=== PATIENT | male | born 1955 | race Caucasian/White ===

== ENCOUNTER 2019-01-30 15:06 | Inpatient (IN) ==
--- NOTE | 2019-01-30 17:37 | Anesthesia Evaluation PreOp ---
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 History: Other (Dementia, Depression/Anxiety) Other Medical History: Hepatic (Hep C), GERD (PUD), Other (Vertigo, spinal stenosis, BPH) Anesthesia History: Past Anesthesia (none) Alcohol Use: none Drug use: none Medications and Allergies Acetaminophen [Acetaminophen ER] 650 mg PO Q8H 01/30/19 [History] Atorvastatin Calcium [Lipitor] 20 mg PO DAILY 01/30/19 [History] Cromolyn Sodium 10 ml OP 01/30/19 [History] DiphenhydraMINE [Benadryl] 50 mg IV Q8HR 01/30/19 [History] Donepezil HCl [Aricept] 5 mg PO DAILY 01/30/19 [History] Duloxetine HCl [Cymbalta] 120 mg PO DAILY 01/30/19 [History] Finasteride [Proscar] 5 mg PO DAILY 01/30/19 [History] LORazepam [Lorazepam] 1 tab PO BID 01/30/19 [History] Levothyroxine 1 tab PO DAILY 01/30/19 [History] [place] Carbonate 300 mg PO BID 01/30/19 [History] Loperamide HCl [Anti-Diarrheal] 2 mg PO BID 01/30/19 [History] Nitrofurantoin Macrocrystal [Nitrofurantoin] 100 mg PO BID 01/30/19 [History] Tamsulosin HCl [Flomax] 0.4 mg PO DAILY 01/30/19 [History] chlorproMAZINE [Thorazine] 25 mg PO DAILY 01/30/19 [History] risperiDONE [Risperidone] 1 mg PO Q4H 01/30/19 [History] Allergy/AdvReac Type Severity Reaction Status Date / Time bupropion Allergy See Verified 01/30/19 12:52 Comments haloperidol [From Haldol] Allergy See Verified 01/30/19 12:52 Comments methadone Allergy See Verified 01/30/19 12:52 Comments pravastatin Allergy See Verified 01/30/19 12:52 Comments rosuvastatin [From Crestor] Allergy See Verified 01/30/19 12:52 Comments simvastatin Allergy See Verified 01/30/19 12:52 Comments sulfamethoxazole Allergy See Verified 01/30/19 12:52 [From Bactrim] Comments tramadol Allergy See Verified 01/30/19 12:52 Comments trimethoprim [From Bactrim] Allergy See Verified 01/30/19 12:52 Comments - Meds/Allergy Pre-op Review Medications Reviewed: Yes Allergies Reviewed: Yes Beta Blockers on Current Med List: No Anesthesia Results - Labs Laboratory Tests 04/27/15 05/21/15 06:02 06:10 WBC 6.1 Hgb 14.7 Hct 44.8 Plt Count 177 Hemoglobin A1c 5.9 Anesthesia Exam Vital Signs/O2 Sat, Most Current Temp Pulse Resp BP Pulse Ox 97.7 F 91 17 145/91 98 01/30/19 18:36 01/30/19 18:36 01/30/19 18:36 01/30/19 18:36 01/30/19 18:36 - HEENT Pupil (Motor): Pupils equal, EOMI Mallampati: III Teeth: Normal Oral Opening: Greater than 3 - PHOTOVOLTAIC FABRICATION TECHNICIAN LOC: Confused, Disoriented PHOTOVOLTAIC FABRICATION TECHNICIAN Motor: Normal RUE, Normal LUE, Normal RLE, Normal LLE, Normal Face PHOTOVOLTAIC FABRICATION TECHNICIAN Sensory: Normal: RUE, LUE, RLE, LLE, Face - Cardiac Rhythm: Regular Murmur: None JVD: No Carotid Bruit: No - Pulmonary Breath Sounds: bilateral Clear Respiratory Effort: Symmetrical - Additional Findings 19:45 Unsuccessfully attempted contacting Roshni Del Castillo, Sister and Guardian. . Anesthesia Assess/Plan ASA Score: 3 Level of consciousness: Cooperative Anesthetic Plan: General, Regional Nerve Block Regional Nerve Block Plan: Supraclavicular Autologous Blood: Yes Monitoring Plan: Standard Monitors Recovery Plan: PACU
[2019-01-30] MEDS ORDERED: Naloxone 0.4 MG/ML INJ IVP PRN (18:46)
[2019-01-30] MEDS ORDERED: Ondansetron 4 MG/2 ML VIAL IVP PRN (18:46)
--- NOTE | 2019-01-30 19:24 | Internal Med History&Physical ---
Date of Encounter: 01/30/19 Time of Encounter: 19:23 Internal Medicine - H&P: HPI Chief complaint: L arm pain Admitted From: Hospital to Hospital Transfer Plans for Post Hospital Care: Transfer Group Home Facility History of present illness: Mr. Nichols is a 63 year old male Information obtained from medical records since patient has hx of dementia an is a poor historian - past medical hx of CAD dementia GERD hepatitis HTN thyroid disease bipolar depression. Presented to [facility] after experiencing fall at [facility]. Patient was recently transferred to the [facility]. Unsure of how patient fell, patient states " I fell out of wheel chair" He has hx of multiple falls - Humerus xray Comminuted fracture with dislocation left shoulder.He does have a hx of prior humerus fx unsure if this has been repaired in the past. He was transfered to this facility for surgical intervention. Currently patient is oriented to name only - he thinks he is at the [facility]- I attempted to contact patient sister - Roshni Del Castillo who is listed as emergency contact - no answer left message. Unsure if the fall is mechanical in nature or if he experienced some cardiovascular/neurological event. Will obtain CT of head without contrast as well as a cardiac workup. At this time thepatient is HIGH RISK for surgery dt lack of medical information and unknown nature of fall. He require a complete cardiac workup, I did discuss with Dr Siddiqui who is on for orthopedics and informed him that the patient NOT CLEARED for surgery at this time. Past Med Surg Social Fam HX - Past Medical History Medical history: coronary artery disease, dementia, diabetes, GERD, glaucoma, hepatitis, hyperlipidemia, hypertension, osteoporosis, thyroid disease, other Additional medical history: Hep C. CANDIDA. Anemia. Vertigo. Spinal stenosis. Pepic Ulcer. Malingerer. BPH Psychiatric history: bipolar, depression - Social History Smoking Status: Never smoker Smokeless Tobacco Status: No Alcohol use: none Drug use: none - Additional Family History Additional family history: unknown Internal Medicine - H&P: Meds Acetaminophen [Acetaminophen ER] 650 mg PO Q6H PRN 01/30/19 [History] Atorvastatin Calcium [Lipitor] 20 mg PO DAILY 01/30/19 [History] Cromolyn Sodium 10 ml OP BID 01/30/19 [History] DiphenhydraMINE [Benadryl] 50 mg IV Q8HR 01/30/19 [History] Donepezil HCl [Aricept] 5 mg PO DAILY 01/30/19 [History] Duloxetine HCl [Cymbalta] 120 mg PO DAILY 01/30/19 [History] Finasteride [Proscar] 5 mg PO DAILY 01/30/19 [History] LORazepam [Lorazepam] 1 tab PO BID 01/30/19 [History] Levothyroxine 1 tab PO DAILY 01/30/19 [History] [place] Carbonate 300 mg PO BID 01/30/19 [History] Loperamide HCl [Anti-Diarrheal] 2 mg PO BID 01/30/19 [History] Nitrofurantoin Macrocrystal [Nitrofurantoin] 100 mg PO BID 01/30/19 [History] Tamsulosin HCl [Flomax] 0.4 mg PO DAILY 01/30/19 [History] chlorproMAZINE [Thorazine] 25 mg PO DAILY 01/30/19 [History] risperiDONE [Risperidone] 1 mg PO Q4H 01/30/19 [History] Allergy/AdvReac Type Severity Reaction Status Date / Time bupropion Allergy See Verified 01/30/19 12:52 Comments haloperidol [From Haldol] Allergy See Verified 01/30/19 12:52 Comments methadone Allergy See Verified 01/30/19 12:52 Comments pravastatin Allergy See Verified 01/30/19 12:52 Comments rosuvastatin [From Crestor] Allergy See Verified 01/30/19 12:52 Comments simvastatin Allergy See Verified 01/30/19 12:52 Comments sulfamethoxazole Allergy See Verified 01/30/19 12:52 [From Bactrim] Comments tramadol Allergy See Verified 01/30/19 12:52 Comments trimethoprim [From Bactrim] Allergy See Verified 01/30/19 12:52 Comments ROS unobtainable: due to mental status All Systems PM: A 10-system review of systems was performed and is negative for pertinent findings except as documented above in the HPI. - Constitutional Vitals: Temp Pulse Resp BP Pulse Ox 97.7 F 91 17 145/91 98 01/30/19 18:36 01/30/19 18:36 01/30/19 18:36 01/30/19 18:36 01/30/19 18:36 General appearance: Present: A&O X 1 Exam: . - Head Head exam: Present: atraumatic, normocephalic - Eye Eye exam: Present: PERRL, conjuntiva pink, sclera anicteric Pupils: Present: PERRL - Neck Neck exam general surgery: Present: supple, trachea midline. Absent: lymphadenopathy - Respiratory Respiratory exam: Present: CTAB. Absent: accessory muscle use, rales, rhonchi, wheezes - Cardiovascular Cardiovascular exam: Present: RRR, +S1, +S2. Absent: diastolic murmur, gallop, rubs, systolic murmur - GI/Abdominal GI/Abdominal exam: Present: normal bowel sounds, soft, no peritoneal signs. A bsent: distended, tenderness - Extremities Exam Extremities exam: Present: normal capillary refill, warm, radial pulses palpable and symmetrical. Absent: calf tenderness, cyanotic, pedal edema - Expanded Upper Extremities Exam Shoulder exam: Present: tenderness, tenderness over AC joint - Neurological Exam Neurological exam: Present: CN II-XII intact, no focal deficits. Absent: pronater drift, facial droop, speech deficit - Skin Skin exam: Present: dry, intact Internal Med - H&P Results - Labs CBC & Chem 7: 01/30/19 19:21 - Assessment and Plan (1) Fracture, humerus Current Visit: No Status: Acute Assessment and plan: L humerus fx secondary to fall appears he has prior hx of past fx ortho consulted - currently patient is NOT cleared for surgery dt unsure of past medical hx- complete cardiac workup will need to be completed Qualifiers: Encounter type: initial encounter Humerus Location: shaft Fracture type: closed Fracture morphology: comminuted Fracture alignment: displaced Laterality: left Qualified Code(s): S42.352A - Displaced comminuted fracture of shaft of humerus, left arm, initial encounter for closed fracture (2) Dementia Current Visit: Yes Status: Acute Assessment and plan: cont home medication Qualifiers: Dementia type: unspecified type Dementia behavioral disturbance: without behavioral disturbance Qualified Code(s): F03.90 - Unspecified dementia without behavioral disturbance (3) CAD (coronary artery disease) Current Visit: Yes Status: Acute Assessment and plan: 1 per hx- CAD- unknown if he has any stents we will obtain cardiac echo troponin EKG and cardiology if warranted Qualifiers: Coronary Disease-Associated Artery/Lesion type: unspecified vessel or lesion type [place] vs. transplanted heart: [place] heart Associated angina: without angina Qualified Code(s): I25.10 - Atherosclerotic heart disease of [place] coronary artery without angina pectoris (4) HTN (hypertension) Current Visit: Yes Status: Acute Assessment and plan: cont home medications Qualifiers: Hypertension type: essential hypertension Qualified Code(s): I10 - Essential (primary) hypertension (5) Hypothyroid Current Visit: Yes Status: Acute Assessment and plan: check TSH Qualifiers: Hypothyroidism type: unspecified Qualified Code(s): E03.9 - Hypothyroidism, unspecified (6) Bipolar 1 disorder, depressed Current Visit: Yes Status: Acute Assessment and plan: cont home medications (7) Fall Current Visit: Yes Status: Acute Assessment and plan: Fall, unsure if witnessed , unsure if mechanical in nature vs cardiovascular/neurological, infectious will obtain CT of head cardiac echo cont cardiac monitoring lab s urine Qualifiers: Encounter type: initial encounter Qualified Code(s): W19.XXXA - Unspecified fall, initial encounter - Time Spent With Patient Total time spent is greater than 50% in coordination of care (as documented) at patient's floor/unit and/or counseling patient:
[2019-01-30 19:53] LABS: Basophils # 0.1 K/mcL (0.0-0.2); Basophils % 0.7 %; Eosinophils # 0.2 K/mcL (0.0-0.6); Eosinophils % 2.1 %; Hemoglobin 11.5 g/dL (12.9-16.9); Immature Granulocytes % 0.4 % (0-4); Lymphocytes # 1.7 K/mcL (0.6-4.6); Lymphocytes % 16.9 %; Mean Corpuscular HGB Conc 31.1 g/dL (31.6-35.5); Mean Corpuscular Hemoglobin 26.9 pg (28.0-33.3); Mean Corpuscular Volume 86.4 fL (83.0-100.0); Mean Platelet Volume 11.3 fL (9.4-12.4); Monocytes # 0.8 K/mcL (0.0-1.3); Monocytes % 7.7 %; Neutrophils # 7.1 K/mcL (1.6-8.9); Platelet Count 189 K/mcL (140-400); Red Blood Count 4.28 M/mcL (4.19-5.50); Red Cell Distribution Width 14.9 % (11.5-14.5); Segmented Neutrophils % 72.2 %; White Blood Count 9.9 K/mcL (4.3-11.1)
[2019-01-30 20:14] LABS: BUN/Creatinine Ratio 18 (6-26); Blood Urea Nitrogen 14 mg/dL (8-23); Calcium 10.6 mg/dL (8.6-10.3); Carbon Dioxide 27 mEq/L (23-29); Chloride 98 mEq/L (98-107); Glucose 151 mg/dL (70-105); Osmolality,Calculated 279 (280-300); Potassium 3.1 mEq/L (3.5-5.1); Sodium 133 mEq/L (136-145); Troponin I < 0.03 ng/mL (< 0.04); eGFR For African Americans > 60 (> 60); eGFR For Non-African Americans > 60 (> 60)
[2019-01-30] MEDS ORDERED: risperiDONE 1 MG TABLET PO SCH (20:15)
[2019-01-30 20:26] LABS: Thyroid Stimulating Hormone 0.573 mcIU/mL (0.340-5.600)
[2019-01-30] MEDS ORDERED: risperiDONE 1 MG TABLET PO PRN (22:22)
[2019-01-30] MEDS: Lithium Carbonate 300 MG CAPSULE PO SCH (22:25)
[2019-01-30] MEDS: *HR* LORazepam 1 MG TABLET PO SCH (22:25)
[2019-01-30] MEDS ORDERED: Potassium Chloride 20 MEQ, Lidocaine 1% 2 ML in D5% in Water 250 ML IVPB ONE (22:29)
[2019-01-31 00:26] LABS: Bilirubin,Urine Negative (Negative); Blood,Urine Negative (Negative); Clarity,Urine Clear (Clear); Color,Urine Yellow (Yellow); Glucose,Urine (UA) Normal (Normal); Ketones,Urine Negative (Negative); Leukocyte Esterase,Urine Moderate (Negative); Nitrite,Urine Negative (Negative); PH,Urine 6.5 pH Units (5.0-8.0); Protein,Urine Negative (Neg-Trace); Specific Gravity,Urine 1.007 (1.010-1.025); Urobilinogen,Urine Normal (Normal)
[2019-01-31 00:27] LABS: Bacteria,Urine None Seen per hpf (None-Few); Hyaline Casts,Urine None Seen per lpf (None-Few); RBC,Urine 0-3 per hpf (0-3); Squamous Epithelial Cell,Urine Moderate per lpf (None-Few); WBC,Urine 15-30 per hpf (0-3)
[2019-01-31 02:36] LABS: Basophils # 0.1 K/mcL (0.0-0.2); Basophils % 0.7 %; Eosinophils # 0.4 K/mcL (0.0-0.6); Eosinophils % 4.5 %; Hematocrit 34.8 % (37.5-50.1); Hemoglobin 10.9 g/dL (12.9-16.9); Immature Granulocytes % 0.4 % (0-4); Lymphocytes % 23.8 %; Mean Corpuscular HGB Conc 31.3 g/dL (31.6-35.5); Mean Corpuscular Volume 86.1 fL (83.0-100.0); Mean Platelet Volume 11.2 fL (9.4-12.4); Monocytes # 0.8 K/mcL (0.0-1.3); Monocytes % 9.5 %; Neutrophils # 5.2 K/mcL (1.6-8.9); Platelet Count 187 K/mcL (140-400); Red Blood Count 4.04 M/mcL (4.19-5.50); Red Cell Distribution Width 14.8 % (11.5-14.5); Segmented Neutrophils % 61.1 %; White Blood Count 8.5 K/mcL (4.3-11.1)
[2019-01-31 02:51] LABS: BUN/Creatinine Ratio 18 (6-26); Blood Urea Nitrogen 16 mg/dL (8-23); Calcium 10.4 mg/dL (8.6-10.3); Carbon Dioxide 28 mEq/L (23-29); Chloride 99 mEq/L (98-107); Glucose 129 mg/dL (70-105); Osmolality,Calculated 281 (280-300); Potassium 4.2 mEq/L (3.5-5.1); Sodium 134 mEq/L (136-145); eGFR For African Americans > 60 (> 60); eGFR For Non-African Americans > 60 (> 60)
[2019-01-31] MEDS: Lithium Carbonate 300 MG CAPSULE PO SCH ×2 (08:58→20:08)
[2019-01-31] MEDS: *HR* LORazepam 1 MG TABLET PO SCH ×2 (08:59→20:08)
[2019-01-31] MEDS ORDERED: chlorproMAZINE 25 MG TABLET PO SCH (09:00)
[2019-01-31] MEDS ORDERED: Finasteride 5 MG TABLET PO SCH (09:00)
--- NOTE | 2019-01-31 09:11 | Orthopedics Progress Note ---
Date of Encounter: 01/31/19 Time of Encounter: 09:10 Subjective Interval history: Patient seen this morning, awake and alert but not oriented. Patient has a comminuted displaced fracture dislocation of the left proximal humerus. Patient is awaiting surgical clearance, recommended surgery is left total shoulder replacement. We are trying to reach the POA for surgical consent. Objective Vital signs: Vital Signs Temp Pulse Resp BP Pulse Ox 01/31/19 07:18 97.9 F 82 16 128/87 95 01/31/19 03:37 98.4 F 88 17 116/76 96 01/30/19 23:51 97.8 F 92 17 127/80 96 01/30/19 18:36 97.7 F 91 17 145/91 98 Intake and Output 01/30/19 01/31/19 01/31/19 23:59 07:59 15:59 Output Total 60 / 60 1200 / 2200 1000 / 2200 Balance -60 / -60 -1200 / -2200 -1000 / -2200 Output: Catheter 60 / 60 1200 / 2200 1000 / 2200 Other: # Voids 1 # Urine Diapers 1 Weight 80.9 kg 81 kg Blood Glucose* 175 102 Patient Weight 01/31/19 23:59 Weight 81 kg - Labs CBC & BMP: 01/31/19 01:10 01/31/19 01:10 Labs: Abnormal lab results RBC 4.04 M/mcL (4.19-5.50) L 01/31/19 01:10 Hgb 10.9 g/dL (12.9-16.9) L 01/31/19 01:10 Hct 34.8 % (37.5-50.1) L 01/31/19 01:10 MCH 27.0 pg (28.0-33.3) L 01/31/19 01:10 MCHC 31.3 g/dL (31.6-35.5) L 01/31/19 01:10 RDW 14.8 % (11.5-14.5) H 01/31/19 01:10 Sodium 134 mEq/L (136-145) L 01/31/19 01:10 Potassium 3.1 mEq/L (3.5-5.1) L 01/30/19 19:21 Glucose 129 mg/dL (70-105) H 01/31/19 01:10 279 (280-300) L 01/30/19 19:21 Calcium 10.4 mg/dL (8.6-10.3) H 01/31/19 01:10 Ur Specific [place] 1.007 (1.010-1.025) L 01/30/19 23:50 Ur Leukocyte Esterase Moderate (Negative) H 01/30/19 23:50 15-30 per hpf (0-3) H 01/30/19 23:50 Ur Squamous Epith Cells Moderate per lpf (None-Few) H 01/30/19 23:50 Ur Culture Indicated? YES (NO) A 01/30/19 23:50 [place] 0.4 mEq/L (0.6-1.2) L 01/30/19 19:21
--- NOTE | 2019-01-31 10:21 | Event Note ---
Date of Encounter: 01/31/19 Time of Encounter: 10:16 S/w Patient's [id number] who is not guardian. Informed patient that I am unable to give her any of patient's information at this time, however, she provides voluntary information stating that patient was in appx 2 months ago with a left upper extremity fracture that was at that time deemed inoperable per [id number] Britni Nichols at who is per Britni patient's brother's , Aaron Nichols. She states he was then transferred to [facility] in [place] and then to a long-term from the [facility]. Left requesting return call to which was the number Britni proivded as Roshni Del Castillo, patient's sister Information in packet from [facility] in [place] reviewed. Now attempting to contact to get copy of xray of shoulder from 2 months ago to attempt to confirm acuteness of fracture. Dr. Siddiqui updated with above information.
[2019-01-31] MEDS ORDERED: *HR* FentaNYL (PF) 100 MCG/2 ML VIAL ONE ×2 (11:19→14:18)
[2019-01-31] MEDS ORDERED: *HR* Propofol 200 MG/20 ML VIAL IVP ONE ×2 (11:19→14:18)
[2019-01-31] MEDS ORDERED: *HR* Midazolam HCl 2 MG/2 ML VIAL ONE (11:19)
[2019-01-31] MEDS ORDERED: Ondansetron 4 MG/2 ML VIAL ONE ×2 (11:23→14:26)
[2019-01-31] MEDS ORDERED: Lidocaine -MPF 2% 2 ML VIAL ONE ×2 (11:23→14:26)
[2019-01-31] MEDS ORDERED: Dexamethasone 4 MG/ML VIAL ONE ×2 (11:23→14:26)
--- NOTE | 2019-01-31 12:41 | Orthopedics Progress Note ---
Date of Encounter: 01/31/19 Time of Encounter: 12:39 Subjective Interval history: The entire date until this point has been trying to figure out patient status before admission, as well as tracking down his power of securities attorney. Fortunately we were able to gain information from recent admission at [facility]. Patient presents today with a fracture of the left humerus. We will to obtain the old films and compare them to the new films since his most recent fall. Patient had a displaced fracture of the left proximal humerus with the alignment although rotation of the humeral head was in line and within the safe space of the upper extremity. Patient's new x-rays show significant difference with displacement of the humeral shaft medially and concern of placing the neurovascular structures medially at risk. Based on the new identified risk and change since his previous x-rays recommendation is still to proceed with surgical management left total shoulder replacement reverse bone socket. We have still been unable to reach his power of securities attorney, this is a fairly urgent surgery due to the risks of the neurovascular structures, delay may result in catastrophic injury. Based on these facts recommendations to proceed with a left total shoulder replacement reverse bone socket without delay, and proceeded without documentation of agreement with the power of securities attorney. Objective Vital signs: Vital Signs Temp Pulse Resp BP Pulse Ox 01/31/19 09:50 98.3 F 96 14 139/84 96 01/31/19 07:18 97.9 F 82 16 128/87 95 01/31/19 03:37 98.4 F 88 17 116/76 96 01/30/19 23:51 97.8 F 92 17 127/80 96 01/30/19 18:36 97.7 F 91 17 145/91 98 Intake and Output 01/30/19 01/31/19 01/31/19 23:59 07:59 15:59 Output Total 60 / 60 1200 / 3000 1800 / 3000 Balance -60 / -60 -1200 / -3000 -1800 / -3000 Output: Catheter 60 / 60 1200 / 3000 1800 / 3000 Other: # Voids 1 # Urine Diapers 1 Weight 80.9 kg 81 kg Blood Glucose* 175 86 Patient Weight 01/31/19 23:59 Weight 81 kg - Labs CBC & BMP: 01/31/19 01:10 01/31/19 01:10 Labs: Abnormal lab results RBC 4.04 M/mcL (4.19-5.50) L 01/31/19 01:10 Hgb 10.9 g/dL (12.9-16.9) L 01/31/19 01:10 Hct 34.8 % (37.5-50.1) L 01/31/19 01:10 MCH 27.0 pg (28.0-33.3) L 01/31/19 01:10 MCHC 31.3 g/dL (31.6-35.5) L 01/31/19 01:10 RDW 14.8 % (11.5-14.5) H 01/31/19 01:10 Sodium 134 mEq/L (136-145) L 01/31/19 01:10 Potassium 3.1 mEq/L (3.5-5.1) L 01/30/19 19:21 Glucose 129 mg/dL (70-105) H 01/31/19 01:10 279 (280-300) L 01/30/19 19:21 Calcium 10.4 mg/dL (8.6-10.3) H 01/31/19 01:10 Ur Specific [place] 1.007 (1.010-1.025) L 01/30/19 23:50 Ur Leukocyte Esterase Moderate (Negative) H 01/30/19 23:50 15-30 per hpf (0-3) H 01/30/19 23:50 Ur Squamous Epith Cells Moderate per lpf (None-Few) H 01/30/19 23:50 Ur Culture Indicated? YES (NO) A 01/30/19 23:50 [place] 0.4 mEq/L (0.6-1.2) L 01/30/19 19:21
[2019-01-31] MEDS ORDERED: *HR* Succinylcholine 200 MG/10 ML VIAL IVP ONE (14:26)
[2019-01-31] MEDS ORDERED: *HR* PHENYLEPHRINE 1,000 MCG/10 ML SYRINGE IVP ONE (14:27)
[2019-01-31] MEDS ORDERED: Ropivacaine/PF 0.5% 30 ML VIAL ONE (15:07)
[2019-01-31] MEDS ORDERED: ROPIVACAINE/PF/NS 0.25% 1 EACH SYRINGE INTRAART ONE (15:07)
[2019-01-31] MEDS ORDERED: Ethanol\\Acetic Acid\\Na Ace\\Ben 1,000 ML IRRIG.SOLN IR ONE (15:10)
[2019-01-31] MEDS ORDERED: *HR* OxyCODONE Immed Rel 5 MG TABLET PO PRN ×2 (15:11→18:58)
--- NOTE | 2019-01-31 15:32 | Anesthesia Procedures ---
Date of Encounter: 01/31/19 Time of Encounter: 14:20 Procedures: Anesthesia - Nerve Block Procedure Date: 01/31/19 Time: 14:20 Allergies/Adv Reactions: All Allergies reviewed and confirmed. Surgical Procedure: L Reverse Total Shoulder Arthroplasty Checklist: Correct Patient Identifier, Correct procedure, History checked Correct side: Left Blood Thinner: No Monitor Applied: EKG, BP, Pulse Oximetry Supplemental Oxygen via Nasal Cannula (L/min): 2 Sedation: Versed (mg): 2 Sedation: Fentanyl (mcg): 25 Indication: Post Op Analgesia Pre-op Neuro Deficits: No Block Type: Supraclavicular Catheter placed: No Sterile Technique: Yes Ultrasound used: Yes Anatomy identified: Yes Visual spread of Local: Yes Neuro Stimulation: No Blood on Needle Aspiration: No Smooth Injection of Local: Yes Pain with Injection of Local: No Prep: Chlorhexadine Needle: 22 x 50 mm Stimuplex Local: Ropivacaine (30mL of 0.5% Ropivacaine with 8mg Decadron ) Volume (cc): 30 Number of Attempts: 1 Complications: None/effective block Vitals: Vital Signs/O2 Sat/Glucose, Most Recent Temp Pulse Resp BP Pulse Ox 98.3 F 96 14 139/84 96 01/31/19 09:50 01/31/19 09:50 01/31/19 09:50 01/31/19 09:50 01/31/19 09:50 Blood Glucose* 86 1532 HR 89 BP 115/69 RR 16 SpO2 94%
[2019-01-31] MEDS ORDERED: ceFAZolin 1,000 MG in Water for inj. (sterile) 20 ML IVP ONE (16:58)
--- NOTE | 2019-01-31 17:30 | Electrocardiograph Report ---
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
--- NOTE | 2019-01-31 18:03 | Orthopedic Operative Note ---
Date of procedure: 01/31/19 Pre-op diagnosis: Left fracture dislocation proximal humerus with malunion Post-op diagnosis: same Procedure: Procedure: Total Shoulder Replacment Reverse,left Estimated blood loss: 200 cc Hardware: Metal and polyethylene replacement: Arthrex 24, +4 ,35 mm screw glenoid baseplate, 4 locking 5.5 screw, 42+4 glenosphere, 10 humeral stem, poly insert 3 constrained, 12 metal Exam Under anesthesia: Obvious deformity, decreased motion Procedural Notes: Fracture dislocation with malunion of right proximal humerus. Operative procedure: The patient was brought to the operating room and placed on the operating room table. After general anesthesia was administered the operative shoulder was examined. Findings were noted. The patient was placed in the modified beachchair position. All pressure points were padded appropriately. And the head was stabilized in the neutral position. The operative extremity was prepped and draped in the sterile surgical fashion. The patient received IV antibiotics prior to skin incision. A standard deltopectoral approach was made to the operative shoulder. Incision was made to the skin and subcutaneous tissue,hemo stasis was obtained with Bovie cautery. Using careful blunt dissection the cephalic vein was identified and mobilized medially. The deltopectoral interval was developed and the clavipectoral fascia was incised. Normal anatomic landmarks were difficult to identify, coracoid was identified easily. The humeral head was scarred into the back of the shoulder this was removed with subperiosteal dissection. Patient's proximal humerus was dislocated anteriorly. Had a significant bony malunion around the posterior aspect. This was dissected and excised. The subcutaneous mobility of the humeral shaft. Anterior and posterior [place] retractors were placed to expose the glenoid. The glenoid guide was seated and the centering hole was made. It was reamed with the appropriate reamer. The 24, +4, 35 mm screw, baseplate was seated and secured with 4 locking 5.5 screw. The baseplate was irrigated and dried and the 42+4 Glenosphere was seated and secured with the Grissom taper. The [place] taper was tested and found to be secure, glenosphere fixation was secondarily secured with the central screw. The humerus was redislocated and prepared with the diaphyseal reamers, followed by a broaching process up to the appropriate size 10 in the degrees of retroversion. Trial reduction found the shoulder to be relocatable. Trial components were removed and 10 stem was impacted in place in 20 degrees of retroversion. Trial reduction found the shoulder to be relocatable and stable with the appropriate 12 metal 3 constrained Evelina Trial component was removed and the real implant was seated and secured the shoulder was reduced. The shoulder had excellent motion and excellent stability and no evidence of dislocation. The deep tissue was irrigated with pulse irrigation. The deltopectoral interval was closed with a running #1 PDS suture, subcutaneous tissue was irrigated and closed with 0 PDS suture, the skin was closed with Dermabond. The patient was placed in a sterile dressing, abduction brace and extubated. The patient was then transferred to the recovery room in stable condition. Anesthesia: GETA Surgeon: Krish Siddiqui Was there an dermatology physician assistant present: No Estimated blood loss (cc): 200 Condition: stable Disposition: PACU
--- NOTE | 2019-01-31 18:27 | Anesthesia Evaluation Post Op ---
Date of Encounter: 01/31/19 Time of Encounter: 18:26 - Vital Signs Vital Signs: Vital Signs/O2 Sat, Most Current Temp Pulse Resp BP Pulse Ox 98.0 F 98 16 111/66 94 01/31/19 18:19 01/31/19 18:19 01/31/19 18:19 01/31/19 18:19 01/31/19 18:19 - Lungs Lungs: Clear Ascult./Percussion - Airway Airway: Non-obstructed - Cardiovascular Regular Rate - Mental Status Mental Status: Alert & Oriented, Answers Appropriately - Pain Pain Scale: 0 Pain Scale used: Numeric (1 - 10) - Nausea Vomiting Nausea Vomiting: Not Present - Hydration Hydration: Ice chips, Vázquez catheter - Discharge PostOp Status: Transfer Patient to floor
[2019-01-31] MEDS ORDERED: Naloxone 0.4 MG/ML INJ IVP PRN (18:58)
[2019-01-31] MEDS ORDERED: Temazepam 15 MG CAPSULE PO PRN (18:58)
[2019-01-31] MEDS ORDERED: MOM Conc 10 ML UD.LIQ PO PRN (18:58)
[2019-01-31] MEDS ORDERED: Ondansetron 4 MG/2 ML VIAL IVP PRN ×2 (18:58)
[2019-01-31] MEDS ORDERED: Sennosides 8.6 MG TABLET PO PRN (18:58)
--- NOTE | 2019-01-31 19:11 | Internal Med Progress Note ---
Hospitalist Progress Note - Encounter Date of Encounter: 01/31/19 Time of Encounter: 11:00 - Subjective Interval History: Patient is a 63-year-old male with unknown past medical history other than reported mood disorder. Dementia, hypertension and hypothyroid who presented from [facility] from [facility] with humerus fracture. On imaging patient was found to have left fracture dislocation of proximal humerus with malunion Patient was taken to surgery today by orthopedics and now postop day 0 left total shoulder replacement - Exam Vitals: Temp Pulse Resp BP Pulse Ox 98.3 F 105 16 120/75 97 01/31/19 18:34 01/31/19 18:34 01/31/19 18:34 01/31/19 18:34 01/31/19 18:34 Exam: Gen.: Nonacute distress, alert and oriented 1 ENT: Mucosal membranes moist Respiratory: Lungs are clear to auscultation bilaterally without any wheezing rhonchi or rales Cardiovascular: Normal S1 and S2 regular rate rhythm no murmurs rubs or gallops Abdomen: Soft, nontender and nondistended with positive bowel sounds Extremities: No lower extremity edema Skin: Normal color - Assessment and Plan (1) Fracture, humerus Current Visit: No Status: Acute Assessment and Plan: On imaging patient was found to have left fracture dislocation of proximal humerus with malunion Patient was taken to surgery today by orthopedics and now postop day 0 left total shoulder replacement (2) Dementia Current Visit: Yes Status: Acute Assessment and Plan: cont home medication (3) Hypothyroid Current Visit: Yes Status: Acute Assessment and Plan: Continue home dose of levothyroxine (4) Bipolar 1 disorder, depressed Current Visit: Yes Status: Acute Assessment and Plan: cont home medications (5) Fall Current Visit: Yes Status: Acute Assessment and Plan: Fall, unsure if witnessed , unsure if mechanical in nature vs cardiovascular/neurological, infectious will obtain CT of head Will need to consult PT/OT for evaluation - Time Spent with Patient Total time spent is greater than 50% in coordination of care (as documented) at patient's floor/unit and/or counseling patient: Internal Medicine: Result - Labs CBC & Chem 7: 01/31/19 01:10 01/31/19 01:10 Labs: Short CBC 01/30/19 01/31/19 Range/Units 19:21 01:10 WBC 9.9 8.5 (4.3-11.1) K/mcL Hgb 11.5 L 10.9 L (12.9-16.9) g/dL Hct 37.0 L 34.8 L (37.5-50.1) % Plt Count 189 187 (140-400) K/mcL Neutrophils # 7.1 5.2 (1.6-8.9) K/mcL BMP 01/30/19 01/31/19 19:21 01:10 Sodium 133 L 134 L Potassium 3.1 L 4.2 D Chloride 98 99 Carbon Dioxide 27 28 BUN 14 16 Creatinine 0.79 0.89 Glucose 151 H 129 H Calcium 10.6 H 10.4 H Cardiac Enzymes 01/30/19 01/31/19 01/31/19 Range/Units 19:21 01:10 08:06 Troponin I < 0.03 < 0.03 < 0.03 (< 0.04) ng/mL Urine 01/30/19 Range/Units 23:50 Urine Color Yellow (Yellow) Urine Clarity Clear (Clear) Urine pH 6.5 (5.0-8.0) pH Units Ur Specific [place] 1.007 L (1.010-1.025) Urine Protein Negative (Neg-Trace) mg/dL Urine Glucose (UA) Normal (Normal) mg/dL - Impressions Impressions Echocardiogram 01/30/19 18:58 Impressions: Technically sub-optimal due to clinical status. Patient refused to complete the examination. Not all apical views were obtained. LVEF 60%. Not all segments were well visualized, but overall LVEF is normal. Normal LV chamber size, wall thickness. Mild left ventricular diastolic dysfunction. Normal right ventricular structure and function. Unable to estimate RVSP due to lack of TR jet. No obvious significant valvular dysfunction. Findings: Study Quality * Technically sub-optimal due to clinical status. Patient refused to complete the examination. Not all apical views were obtained. ECG Findings * Normal sinus rhythm. Left Ventricle * LVEF 60%. Not all segments were well visualized, but overall LVEF is normal. * Normal LV chamber size, wall thickness. * Mild left ventricular diastolic dysfunction. Right Ventricle * Normal right ventricular structure and function. Right Atrium * Normal right atrial size. Left Atrium * Normal left atrial size. Aortic Valve * Trileaflet aortic valve. * Mildly sclerotic aortic valve leaflets. * No aortic regurgitation. * No aortic stenosis. Mitral Valve * Normal mitral valve structure and function. * No mitral regurgitation. * No mitral stenosis. Tricuspid Valve * Normal tricuspid valve structure and function. * No tricuspid regurgitation. * Unable to estimate RVSP due to lack of TR jet. Pulmonic Valve * Pulmonic valve not well visualized. * No pulmonic regurgitation. Aorta * Mildly dilated Sinuses of Valsalva measuring 4.05 cm. Pericardium * The pericardium appears normal. IVC * Normal IVC dimensions and inspiratory collapse. Pulmonary Artery * Normal visualized portions of the main pulmonary artery. Head CT 01/30/19 18:58 IMPRESSION: No acute intracranial abnormality. D/ / Sandra Tapia MD / Sandra Tapia MD Interpreting Provider: Sandra Tapia MD Chest X-Ray 01/30/19 19:01 IMPRESSION: No acute cardiopulmonary disease. D/ / Gómez Carbajal MD / Gómez Carbajal MD Interpreting Provider: Gómez Carbajal MD Shoulder X-Ray 01/31/19 16:15 IMPRESSION: Left total shoulder arthroplasty without hardware complication. Left 6th rib fracture. D/ / 01/31/2019 18:22:25 Chandra Colvin MD / obed Interpreting Provider: Chandra Colvin MD Consult Discharge Plan - Plan Referrals: NONE,PCP [Primary Care Provider] - (1) Fracture, humerus Qualifiers: Encounter type: initial encounter Humerus Location: shaft Fracture type: closed Fracture morphology: comminuted Fracture alignment: displaced Laterality: left Qualified Code(s): S42.352A - Displaced comminuted fracture of shaft of humerus, left arm, initial encounter for closed fracture (2) Dementia Qualifiers: Dementia type: unspecified type Dementia behavioral disturbance: without behavioral disturbance Qualified Code(s): F03.90 - Unspecified dementia without behavioral disturbance (3) Hypothyroid Qualifiers: Hypothyroidism type: unspecified Qualified Code(s): E03.9 - Hypothyroidism, unspecified (5) Fall Qualifiers: Encounter type: initial encounter Qualified Code(s): W19.XXXA - Unspecified fall, initial encounter
[2019-01-31] MEDS: Ringers Solution, Lactated 1,000 ML IVC SCH (20:09)
--- NOTE | 2019-01-31 21:25 | Event Note ---
Date of Encounter: 01/31/19 Time of Encounter: 20:22 Alerted by patient's nurse NICOLLE Domingo that patient had pulled out his Vázquez with inflation bulb fully inflated. Pt. had been admitted for surgery but has AMS and is A&O x1 (only self). Vázquez catheter was ordered yesterday d/t incontinence w/wounds present in groin. Went to see the pt. who was resting in bed. I examined the penis which appeared atraumatic. Pt. denied any pain on my examination w/palpation. Some dried blood present but no active bleeding at the time of examination. Will put disposable pants on for now and monitor for signs of new bleeding. If so, Urology will be consulted. Nurse instructed to continue monitoring the pt. and alert me immediately of any adverse events/changes.
[2019-01-31 22:09] LABS: Hematocrit 35.2 % (37.5-50.1); Hemoglobin 10.9 g/dL (12.9-16.9)
[2019-02-01 03:15] LABS: Hematocrit 33.9 % (37.5-50.1); Hemoglobin 10.6 g/dL (12.9-16.9)
[2019-02-01 03:55] LABS: BUN/Creatinine Ratio 20 (6-26); Blood Urea Nitrogen 16 mg/dL (8-23); Calcium 10.1 mg/dL (8.6-10.3); Carbon Dioxide 23 mEq/L (23-29); Chloride 105 mEq/L (98-107); Glucose 266 mg/dL (70-105); Osmolality,Calculated 286 (280-300); Potassium 5.6 mEq/L (3.5-5.1); Sodium 133 mEq/L (136-145); eGFR For African Americans > 60 (> 60); eGFR For Non-African Americans > 60 (> 60)
[2019-02-01] MEDS: risperiDONE 1 MG TABLET PO PRN ×2 (04:12→21:05)
[2019-02-01] MEDS ORDERED: D5% in Water 1,000 ML IVC PRN (04:48)
[2019-02-01] MEDS ORDERED: Dextrose Gel 15 GM/37.5 ML TUBE PO PRN ×2 (04:48)
[2019-02-01] MEDS ORDERED: *HR* Dextrose 50 % in Water (Syg) 50 ML SYRINGE IVP PRN (04:48)
--- NOTE | 2019-02-01 07:42 | Event Note ---
Date of Encounter: 02/01/19 Time of Encounter: 07:00 Responded to a rapid response at 6:48 AM. Upon arrival patient was in bed with areas of blood covering his right hand and forehead. Nurse at the time was applying pressure to the forehead due to a laceration the patient apparently suffered when he got out of bed to go use the bathroom and fell. Patient was reportedly found on the floor face down. Dr. Riddle and I assessed the patient who appeared to be alert and oriented 3. Vitals obtained shortly thereafter were stable. Patient postop day 1 after left shoulder replacement by Dr. Siddiqui. On examination patient had a 3 x 2 X shaped laceration to the left for head. By this time there was no further evidence of active bleeding. However, surgical gauze over the left shoulder appeared to be soaked in blood. Patient will be sent for CAT scan of the head and left shoulder Dr. Jamil surgery was consulted and will see the patient and recommended 4 x 4 gauze with Kerlix in the meantime. Dr. Siddiqui was also made aware of the incident.
[2019-02-01] MEDS ORDERED: *HR* LORazepam 2 MG/ML VIAL IVP PRN (08:00)
[2019-02-01 08:42] LABS: INR 1.2; Prothrombin Time 13.3 Seconds (9.4-12.1)
--- NOTE | 2019-02-01 08:53 | Orthopedics Progress Note ---
Date of Encounter: 02/01/19 Time of Encounter: 08:51 Subjective Interval history: S: Patient is seen today and has no complaints. Events of last night noted O: Afebrile and vital signs are stable Operative extremity dressing is clean, dry, and intact. Neurovascularly intact to left upper extremity Left shoulder x-ray from today shows no new injuries and good placement of the hardware A: Post left shoulder arthroplasty P: Resume postoperative care Objective Vital signs: Vital Signs Temp Pulse Resp BP Pulse Ox 02/01/19 07:00 107 141/76 96 02/01/19 06:21 98.4 F 85 16 124/70 93 02/01/19 03:38 98.5 F 94 15 109/72 96 01/31/19 23:41 98.1 F 101 16 103/61 96 01/31/19 22:05 98.3 F 114 16 131/79 95 01/31/19 21:25 98.1 F 103 14 105/68 94 01/31/19 20:35 97.6 F 104 14 93/59 93 01/31/19 20:05 97.6 F 107 16 120/85 95 01/31/19 19:25 98.1 F 115 16 116/77 94 01/31/19 19:10 97.7 F 107 16 115/73 94 01/31/19 18:34 98.3 F 105 16 120/75 97 01/31/19 18:19 98.0 F 98 16 111/66 94 01/31/19 18:09 97 16 101/69 95 01/31/19 17:59 97 18 110/68 95 01/31/19 17:49 98.0 F 95 16 124/69 97 01/31/19 15:44 87 16 104/67 94 01/31/19 15:28 89 115/63 94 01/31/19 15:12 92 16 132/76 92 01/31/19 09:50 98.3 F 96 14 139/84 96 Intake and Output 01/31/19 02/01/19 02/01/19 23:59 07:59 15:59 Intake Total 100 / 100 Output Total 775 / 4675 Balance -755 / -4655 100 / 100 Intake: IV Fluids 20 / 20 100 / 100 Ancef 1,000 MG In Water for inj . (sterile) 20 ML @ 200 mls/hr IVP PREOP ONE Rx#:[id number] Ancef 2,000 MG In 0.9 % Sodium 100 / 100 Chloride 100 ML @ 200 mls/hr IVPB Q8HR [facility] Rx#:[id number] Output: Estimated Blood Loss 200 / 200 Urine Amount (Catheter) 375 / 375 Catheter 200 / 4100 Other: Weight 83.2 kg Blood Glucose* 213 170 Patient Weight 02/01/19 23:59 Weight 83.2 kg - Labs CBC & BMP: 02/01/19 02:57 02/01/19 02:57 Labs: Abnormal lab results RBC 4.04 M/mcL (4.19-5.50) L 01/31/19 01:10 Hgb 10.6 g/dL (12.9-16.9) L 02/01/19 02:57 Hct 33.9 % (37.5-50.1) L 02/01/19 02:57 MCH 27.0 pg (28.0-33.3) L 01/31/19 01:10 MCHC 31.3 g/dL (31.6-35.5) L 01/31/19 01:10 RDW 14.8 % (11.5-14.5) H 01/31/19 01:10 PT 13.3 Seconds (9.4-12.1) H 02/01/19 08:07 Sodium 133 mEq/L (136-145) L 02/01/19 02:57 Potassium 5.6 mEq/L (3.5-5.1) H 02/01/19 02:57 Glucose 266 mg/dL (70-105) H 02/01/19 02:57 279 (280-300) L 01/30/19 19:21 Calcium 10.4 mg/dL (8.6-10.3) H 01/31/19 01:10 Ur Specific [place] 1.007 (1.010-1.025) L 01/30/19 23:50 Ur Leukocyte Esterase Moderate (Negative) H 01/30/19 23:50 15-30 per hpf (0-3) H 01/30/19 23:50 Ur Squamous Epith Cells Moderate per lpf (None-Few) H 01/30/19 23:50 Ur Culture Indicated? YES (NO) A 01/30/19 23:50 [place] 0.4 mEq/L (0.6-1.2) L 01/30/19 19:21 Consult Discharge Plan - Plan Referrals: NONE,PCP [Primary Care Provider] -
[2019-02-01 09:05] LABS: Basophils % 0.1 %; Hematocrit 31.6 % (37.5-50.1); Hemoglobin 9.7 g/dL (12.9-16.9); Immature Granulocytes % 0.7 % (0-4); Lymphocytes # 0.7 K/mcL (0.6-4.6); Lymphocytes % 3.9 %; Mean Corpuscular HGB Conc 30.7 g/dL (31.6-35.5); Mean Corpuscular Hemoglobin 27.1 pg (28.0-33.3); Mean Corpuscular Volume 88.3 fL (83.0-100.0); Mean Platelet Volume 11.2 fL (9.4-12.4); Monocytes # 0.9 K/mcL (0.0-1.3); Monocytes % 5.3 %; Neutrophils # 15.1 K/mcL (1.6-8.9); Platelet Count 221 K/mcL (140-400); Red Blood Count 3.58 M/mcL (4.19-5.50); Red Cell Distribution Width 14.5 % (11.5-14.5)
[2019-02-01 09:07] LABS: White Blood Count 16.8 K/mcL (4.3-11.1)
[2019-02-01] MEDS: Insulin LISPRO 300 UNITS/3 ML VIAL SQ SCH ×4 (09:12→21:33)
[2019-02-01] MEDS: *HR* LORazepam 1 MG TABLET PO SCH ×2 (09:14→21:06)
[2019-02-01] MEDS: Lithium Carbonate 300 MG CAPSULE PO SCH ×2 (09:14→21:05)
[2019-02-01] MEDS: Finasteride 5 MG TABLET PO SCH (09:14)
[2019-02-01] MEDS: chlorproMAZINE 25 MG TABLET PO SCH (09:14)
--- NOTE | 2019-02-01 09:16 | Internal Med Progress Note ---
Hospitalist Progress Note - Encounter Date of Encounter: 02/01/19 Time of Encounter: 11:00 - Subjective Interval History: Patient presented from [facility] found to have left fracture with dislocation of proximal humerus with malunion secondary to fall. Patient now postop day 1 total left shoulder replacement. Patient overnight with confusion and fell on left shoulder but repeat x-ray revealed that the total left shoulder arthroplasty was stable in position and securely engaged. Patient also sustained a laceration on forehead; general surgery consulted for repair - Exam Vitals: Temp Pulse Resp BP Pulse Ox 98.4 F 107 16 141/76 96 02/01/19 06:21 02/01/19 07:00 02/01/19 06:21 02/01/19 07:00 02/01/19 07:00 Exam: Gen.: Nonacute distress, alert and oriented 1 ENT: Mucosal membranes moist Respiratory: Lungs are clear to auscultation bilaterally without any wheezing rhonchi or rales Cardiovascular: Normal S1 and S2 regular rate rhythm no murmurs rubs or gallops Abdomen: Soft, nontender and nondistended with positive bowel sounds Extremities: No lower extremity edema Skin: Normal color - Assessment and Plan (1) Fracture, humerus Current Visit: No Status: Acute Assessment and Plan: Patient presented from ECF found to have left fracture with dislocation of proximal humerus with malunion secondary to fall. Patient now postop day 1 total left shoulder replacement. Orthopedics following appreciate recommendations rehabilitation caseworker following for placement with [place] [facility] (2) UTI (urinary tract infection) Current Visit: Yes Status: Acute Assessment and Plan: Patient found to have gram-negative rods rowing in urine cultures; sensitivities pending Patient also with leukocytosis and increasing confusion as below Will obtain blood cultures After blood cultures obtained, will start patient on Zosyn and await sensitivities (3) Dementia Current Visit: Yes Status: Acute Assessment and Plan: Per executive secretary social welfare's note. Frustrated as [facility]'s full condition to them therefore medical history uncertain Patient apparently has dementia and is on medications Patient has been confused since his arrival to [facility] has only been alert and oriented to person Head CT showed no acute findings Cont home medication (4) Hypothyroid Current Visit: Yes Status: Acute Assessment and Plan: Continue home dose of levothyroxine (5) Bipolar 1 disorder, depressed Current Visit: Yes Status: Acute Assessment and Plan: cont home medications (6) Fall Current Visit: Yes Status: Acute Assessment and Plan: Fall, unsure if witnessed , unsure if mechanical PT/OT consulted for evaluation - Time Spent with Patient Total time spent is greater than 50% in coordination of care (as documented) at patient's floor/unit and/or counseling patient: Internal Medicine: Result - Labs CBC & Chem 7: 02/01/19 08:07 02/01/19 02:57 Labs: Short CBC 01/31/19 02/01/19 02/01/19 Range/Units 22:02 02:57 08:07 WBC 16.8 H D (4.3-11.1) K/mcL Hgb 10.9 L 10.6 L 9.7 L (12.9-16.9) g/dL Hct 35.2 L 33.9 L 31.6 L (37.5-50.1) % Plt Count 221 (140-400) K/mcL Neutrophils # 15.1 H (1.6-8.9) K/mcL BMP 02/01/19 02:57 Sodium 133 L Potassium 5.6 H Chloride 105 Carbon Dioxide 23 BUN 16 Creatinine 0.82 Glucose 266 H Calcium 10.1 - ABG Interpretation ABG results: PT/INR, D-dimer PT 13.3 Seconds (9.4-12.1) H 02/01/19 08:07 - Impressions Impressions Shoulder X-Ray 01/31/19 16:15 IMPRESSION: Left total shoulder arthroplasty without hardware complication. Left 6th rib fracture. D/ / 01/31/2019 18:22:25 Chandra Colvin MD / [facility] Interpreting Provider: Chandra Colvin MD Head CT 02/01/19 06:54 IMPRESSION: No acute traumatic intracranial abnormality D/ / Papa Garcia MD / Papa Garcia MD Interpreting Provider: Papa Garcia MD Shoulder X-Ray 02/01/19 07:04 IMPRESSION: Stable left shoulder arthroplasty compared to 01/31/2019. D/ / 02/01/2019 08:29:31 Gómez Torres MD / fidelina Interpreting Provider: Gómez Torres MD Consult Discharge Plan - Plan Referrals: NONE,PCP [Primary Care Provider] - (1) Fracture, humerus Qualifiers: Encounter type: initial encounter Humerus Location: shaft Fracture type: closed Fracture morphology: comminuted Fracture alignment: displaced Laterality: left Qualified Code(s): S42.352A - Displaced comminuted fracture of shaft of humerus, left arm, initial encounter for closed fracture (3) Dementia Qualifiers: Dementia type: unspecified type Dementia behavioral disturbance: without behavioral disturbance Qualified Code(s): F03.90 - Unspecified dementia without behavioral disturbance (4) Hypothyroid Qualifiers: Hypothyroidism type: unspecified Qualified Code(s): E03.9 - Hypothyroidism, unspecified (6) Fall Qualifiers: Encounter type: initial encounter Qualified Code(s): W19.XXXA - Unspecified fall, initial encounter
--- NOTE | 2019-02-01 09:35 | Event Note ---
<Chucky Gamble - Last Filed: 02/01/19 10:03> Date of Encounter: 02/01/19 Time of Encounter: 09:32 Consulted on patient who suffered a fall injuring his head with a bleeding laceration on the left forehead. Patient admitted to the hospital after fracture of his left humerus s/p left shoulder arthroplasy. On evaluation los ent has a laceration of the left forehead measuring 4cm x 4cm in a T-shaped pattern. Recommend laceration repair at bedside. Patient has a documented history of dementia and on evaluation cannot provide a adequate history and do not believe that he can give consent. Attempted multiple times to contact POA with no success. Emergent closure of the laceration is necessary and will proceed with repair of the complex laceration. <Kaushik Jamil - Last Filed: 02/01/19 12:45> Date of Encounter: 02/01/19 The patient has significant dementia. He has an open wound on his left forehead. This is a complex T-shaped full-thickness laceration to the level of the fascia. This will need to be closed to prevent further bleeding and to promote healing. We were unable to reach the power of litigation attorney. This is deemed to be an urgent necessity and we will proceed without directly speaking to the power of litigation attorney with closing the forehead laceration. Kaushik Jamil MD FACS
--- NOTE | 2019-02-01 10:02 | Procedure Note ---
<Chucky Gamble - Last Filed: 02/01/19 10:03> Date of procedure: 02/01/19 Pre-op diagnosis: head laceration Post-op diagnosis: same Procedure: Repair of a complex laceration on the left forehead measuring 4 cm x 4 cm in a T-shape. Surgeon was appropriately sterilized. The area was prepped and sterilized with Betadine. Used 5 mL 1% lidocaine without epinephrine to numb appropriately numb the area. The skin edges were approximated with forceps and stapled close. Satisfactory wound repair achieved. Wound covered by 4 x 4 and taped closed. Patient tolerated the procedure well and there were no complications. Anesthesia: local Surgeon: Kaushik Jamil Was there an administrative assistant front desk present: Yes Rfid Engineer: Chucky Gamble Estimated blood loss (cc): 1 Specimen: none Pathology: none sent Condition: stable Disposition: floor <Kaushik Jamil - Last Filed: 02/01/19 12:47> Procedure: The patient is seen and evaluated prior to the procedure. He is unable to give informed consent. This is deemed to be an urgent procedure. We proceeded without informed consent secondary to an open bleeding laceration on the forehead. The areas prepped and draped in sterile fashion utilizing Betadine solution standard draping techniques. 5 mL of 1% lidocaine was used for local anesthetic. I was present during the entire procedure and worked with resident to close the complex T-shaped 4 cm x 4 cm full-thickness laceration. Single layered closures with jess is performed. He tolerated the procedure well. Sterile dressing is applied. Kaushik Jamil MD FACS
[2019-02-01] MEDS: Piperacillin/Tazobactam 3.375 GM in 0.9 % Sodium Chloride Mini Bag 100 ML IVPB SCH ×2 (11:47→15:56)
[2019-02-01] MEDS: Ringers Solution, Lactated 1,000 ML IVC SCH (14:28)
[2019-02-01] MEDS ORDERED: Ketorolac 30 MG/ML VIAL IVP ONE (18:53)
[2019-02-02] MEDS: Piperacillin/Tazobactam 3.375 GM in 0.9 % Sodium Chloride Mini Bag 100 ML IVPB SCH ×3 (02:25→15:43)
[2019-02-02] MEDS: risperiDONE 1 MG TABLET PO PRN ×3 (06:40→20:04)
--- NOTE | 2019-02-02 07:59 | Orthopedics Progress Note ---
Date of Encounter: 02/02/19 Time of Encounter: 07:58 Subjective Interval history: S: Patient is seen today and has no complaints. O: Afebrile and vital signs are stable Operative extremity dressing is clean, dry, and intact. Neurovascularly intact to left upper extremity Left shoulder x-ray from today shows no new injuries and good placement of the hardware A: Post left shoulder arthroplasty P: Resume postoperative care Orthopedically stable Objective Vital signs: Vital Signs Temp Pulse Resp BP Pulse Ox 02/02/19 07:30 97.5 F L 98 19 129/77 94 02/02/19 03:27 98.1 F 102 16 106/63 92 02/01/19 19:30 97.4 F L 94 16 99/63 100 02/01/19 15:37 97.8 F 100 18 120/70 95 02/01/19 12:11 97.7 F 108 17 158/92 98 Intake and Output 02/01/19 02/01/19 02/02/19 15:59 23:59 07:59 Intake Total 1220 / 5020 3700 / 5020 100 / 100 Output Total 600 / 600 Balance 1220 / 4420 3100 / 4420 100 / 100 Intake: IV Fluids 1100 / 1300 100 / 1300 100 / 100 Lactated Ringers 1,000 ML @ 75 1000 / 1000 mls/hr IVC .[id number] [facility] Rx#: [id number] Zosyn 3.375 GM In 0.9 % Sodium 100 / 200 100 / 200 100 / 100 Chloride (Mini-Bag +) 100 ML @ 25 mls/hr IVPB Q8HR [facility] Rx#: [id number] Oral 120 / 3720 3600 / 3720 Output: Urine 600 / 600 Other: Meal Lunch # Voids 3 # Urine Diapers 1 1 Weight 82.9 kg Blood Glucose* 137 126 Patient Weight 02/02/19 23:59 Weight 82.9 kg - Labs CBC & BMP: 02/01/19 08:07 02/01/19 02:57 Labs: Abnormal lab results WBC 16.8 K/mcL (4.3-11.1) H D 02/01/19 08:07 RBC 3.58 M/mcL (4.19-5.50) L 02/01/19 08:07 Hgb 9.7 g/dL (12.9-16.9) L 02/01/19 08:07 Hct 31.6 % (37.5-50.1) L 02/01/19 08:07 MCH 27.1 pg (28.0-33.3) L 02/01/19 08:07 MCHC 30.7 g/dL (31.6-35.5) L 02/01/19 08:07 RDW 14.8 % (11.5-14.5) H 01/31/19 01:10 15.1 K/mcL (1.6-8.9) H 02/01/19 08:07 PT 13.3 Seconds (9.4-12.1) H 02/01/19 08:07 Sodium 133 mEq/L (136-145) L 02/01/19 02:57 Potassium 5.6 mEq/L (3.5-5.1) H 02/01/19 02:57 Glucose 266 mg/dL (70-105) H 02/01/19 02:57 POC Glucose 199 mg/dL (70-99) H 02/01/19 06:59 279 (280-300) L 01/30/19 19:21 Calcium 10.4 mg/dL (8.6-10.3) H 01/31/19 01:10 Ur Specific [place] 1.007 (1.010-1.025) L 01/30/19 23:50 Ur Leukocyte Esterase Moderate (Negative) H 01/30/19 23:50 15-30 per hpf (0-3) H 01/30/19 23:50 Ur Squamous Epith Cells Moderate per lpf (None-Few) H 01/30/19 23:50 Ur Culture Indicated? YES (NO) A 01/30/19 23:50 [place] 0.4 mEq/L (0.6-1.2) L 01/30/19 19:21 Consult Discharge Plan - Plan Referrals: NONE,PCP [Primary Care Provider] -
[2019-02-02] MEDS: chlorproMAZINE 25 MG TABLET PO SCH (08:20)
[2019-02-02] MEDS: Lithium Carbonate 300 MG CAPSULE PO SCH ×2 (08:20→20:04)
[2019-02-02] MEDS: *HR* LORazepam 1 MG TABLET PO SCH ×2 (08:20→20:04)
[2019-02-02] MEDS: Finasteride 5 MG TABLET PO SCH (08:20)
[2019-02-02] MEDS: Insulin LISPRO 300 UNITS/3 ML VIAL SQ SCH ×4 (08:21→21:00)
--- NOTE | 2019-02-02 08:30 | AcuteCareSurgery Progress Note ---
Date of Encounter: 02/02/19 Time of Encounter: 07:30 - Assessment and Plan (1) Forehead laceration Current Visit: Yes Status: Acute s/p repair. [place] to be removed in 7-10 days. Surgery signing off. Qualifiers: Qualified Code(s): S01.81XD - Laceration without foreign body of other part of head, subsequent encounter (2) Dementia Current Visit: Yes Status: Acute Qualifiers: Dementia type: unspecified type Dementia behavioral disturbance: without behavioral disturbance Qualified Code(s): F03.90 - Unspecified dementia without behavioral disturbance (3) Fall Current Visit: Yes Status: Acute Qualifiers: Encounter type: initial encounter Qualified Code(s): W19.XXXA - Unspecified fall, initial encounter Subjective Patient reports: no new complaints Narrative: Post-procedure day#1 for lac repair forehead s/p fall. Objective Vital Signs - Last 8 Hours Temp Pulse Resp BP Pulse Ox 02/02/19 07:30 97.5 F L 98 19 129/77 94 02/02/19 03:27 98.1 F 102 16 106/63 92 Intake and Output 02/01/19 02/02/19 02/02/19 23:59 07:59 15:59 Intake Total 3700 / 5020 100 / 340 240 / 340 Output Total 600 / 600 Balance 3100 / 4420 100 / 340 240 / 340 Intake: IV Fluids 100 / 1300 100 / 100 Zosyn 3.375 GM In 0.9 % Sodium 100 / 200 100 / 100 Chloride (Mini-Bag +) 100 ML @ 25 mls/hr IVPB Q8HR [facility] Rx#: [id number] Oral 3600 / 3720 240 / 240 Output: Urine 600 / 600 Other: # Urine Diapers 1 Weight 82.9 kg Blood Glucose* 126 99 Patient Weight 02/02/19 23:59 Weight 82.9 kg - General physical appearance no distress, no pain, other (forhead laceration looks good s/p repair) - Eyes PERRL - ENT normal mucosa, no congestion - Neck Neck exam: no masses, no lymphadectomy, no venous distension - Respiratory normal respiratory effort, clear to auscultation - Cardiovascular Cardiovascular exam: Present: RRR, murmurs - Abdomen Abdomen: Present: bowel sounds present, soft, non tender - Labs 02/01/19 08:07 02/01/19 02:57 Consult Discharge Plan - Plan Referrals: NONE,PCP [Primary Care Provider] -
--- NOTE | 2019-02-02 09:42 | Internal Med Progress Note ---
Hospitalist Progress Note - Encounter Date of Encounter: 02/02/19 Time of Encounter: 11:00 - Subjective Interval History: Patient presented from [facility] found to have left fracture with dislocation of proximal humerus with malunion secondary to fall. Patient now postop day 2 total left shoulder replacement. Patient's cultures resulted this morning reveals patient has a urinary tract infection due to Klebsiella and pneumonia MDRO - Exam Vitals: Temp Pulse Resp BP Pulse Ox 97.5 F L 98 19 129/77 94 02/02/19 07:30 02/02/19 07:30 02/02/19 07:30 02/02/19 07:30 02/02/19 07:30 Exam: Gen.: Nonacute distress, alert and oriented 1 ENT: Mucosal membranes moist Respiratory: Lungs are clear to auscultation bilaterally without any wheezing rhonchi or rales Cardiovascular: Normal S1 and S2 regular rate rhythm no murmurs rubs or gallops Abdomen: Soft, nontender and nondistended with positive bowel sounds Extremities: No lower extremity edema Skin: Normal color - Assessment and Plan (1) Fracture, humerus Current Visit: No Status: Acute Assessment and Plan: Patient presented from [facility] found to have left fracture with dislocation of proximal humerus with malunion secondary to fall. Patient now postop day 2 total left shoulder replacement. Orthopedics following appreciate recommendations storage worker following for placement with [place] (2) UTI (urinary tract infection) Current Visit: Yes Status: Acute Assessment and Plan: Patient's cultures resulted this morning reveals patient has a urinary tract infection due to Klebsiella and pneumonia MDRO to sensitive to Zosyn Place patient on contact precautions Will continue day 2 of IV Zosyn (3) Dementia Current Visit: Yes Status: Acute Assessment and Plan: Per social insurance analyst's note. Frustrated as [place] did not disclose patient's full condition to them therefore medical history uncertain Patient apparently has dementia and is on medications Patient has been confused since his arrival to [facility] has only been alert and oriented to person Head CT showed no acute findings but patient does have urinary tract infection as above Cont home medication (4) Hypothyroid Current Visit: Yes Status: Acute Assessment and Plan: Continue home dose of levothyroxine (5) Bipolar 1 disorder, depressed Current Visit: Yes Status: Acute Assessment and Plan: cont home medications (6) Fall Current Visit: Yes Status: Acute Assessment and Plan: Fall, unsure if witnessed , unsure if mechanical PT/OT consulted for evaluation DVT Prophylaxis: Heparin subcutaneous - Time Spent with Patient Total time spent is greater than 50% in coordination of care (as documented) at patient's floor/unit and/or counseling patient: Internal Medicine: Result - Labs CBC & Chem 7: 02/02/19 10:28 02/02/19 10:28 - ABG Interpretation ABG results: PT/INR, D-dimer PT 13.3 Seconds (9.4-12.1) H 02/01/19 08:07 - Impressions Impressions Shoulder X-Ray 01/31/19 16:15 IMPRESSION: Left total shoulder arthroplasty without hardware complication. Left 6th rib fracture. D/ / 01/31/2019 18:22:25 Chandra Colvin MD / obed Interpreting Provider: Chandra Colvin MD Consult Discharge Plan - Plan Additional Instructions: Follow-up with acute care surgery for staple removal in 7-10 days Referrals: Lior Haddad [Partnered Physician] - NONE,PCP [Primary Care Provider] - (1) Fracture, humerus Qualifiers: Encounter type: initial encounter Humerus Location: shaft Fracture type: closed Fracture morphology: comminuted Fracture alignment: displaced Laterality: left Qualified Code(s): S42.352A - Displaced comminuted fracture of shaft of humerus, left arm, initial encounter for closed fracture (3) Dementia Qualifiers: Dementia type: unspecified type Dementia behavioral disturbance: without behavioral disturbance Qualified Code(s): F03.90 - Unspecified dementia without behavioral disturbance (4) Hypothyroid Qualifiers: Hypothyroidism type: unspecified Qualified Code(s): E03.9 - Hypothyroidism, unspecified (6) Fall Qualifiers: Encounter type: initial encounter Qualified Code(s): W19.XXXA - Unspecified fall, initial encounter
[2019-02-02 10:39] LABS: Hematocrit 26.2 % (37.5-50.1)
[2019-02-02 11:03] LABS: BUN/Creatinine Ratio 11 (6-26); Blood Urea Nitrogen 9 mg/dL (8-23); Carbon Dioxide 30 mEq/L (23-29); Chloride 106 mEq/L (98-107); Sodium 137 mEq/L (136-145)
[2019-02-02 11:04] LABS: Calcium 10.2 mg/dL (8.6-10.3); Glucose 131 mg/dL (70-105); Osmolality,Calculated 284 (280-300); eGFR For African Americans > 60 (> 60); eGFR For Non-African Americans > 60 (> 60)
[2019-02-02] MEDS: *HR* Heparin 5,000 UNIT/ML VIAL SQ SCH (14:34)
[2019-02-02] MEDS ORDERED: Ketorolac 30 MG/ML VIAL IVP ONE (15:11)
[2019-02-03] MEDS: risperiDONE 1 MG TABLET PO PRN ×3 (00:35→19:13)
[2019-02-03] MEDS: *HR* Heparin 5,000 UNIT/ML VIAL SQ SCH ×4 (00:35→20:10)
[2019-02-03] MEDS: Piperacillin/Tazobactam 3.375 GM in 0.9 % Sodium Chloride Mini Bag 100 ML IVPB SCH ×3 (00:35→15:27)
--- NOTE | 2019-02-03 07:49 | Internal Med Progress Note ---
Hospitalist Progress Note - Encounter Date of Encounter: 02/03/19 Time of Encounter: 11:00 - Subjective Interval History: Patient presented from [facility] found to have left fracture with dislocation of proximal humerus with malunion secondary to fall. Patient now postop day 3 total left shoulder replacement. In addition patient also status post closure of laceration on left forehead Patient's urine cultures growing Klebsiella pneumonia that is MDRO Attempted to call Saadia Del Castillo patient's sister this afternoon but no answer therefore left a voicemail message. - Exam Vitals: Temp Pulse Resp BP Pulse Ox 98.4 F 90 15 146/76 96 02/03/19 06:57 02/03/19 06:57 02/03/19 06:57 02/03/19 06:57 02/03/19 06:57 Exam: Gen.: Nonacute distress, alert and oriented 1 ENT: Mucosal membranes moist Respiratory: Lungs are clear to auscultation bilaterally without any wheezing rhonchi or rales Cardiovascular: Normal S1 and S2 regular rate rhythm no murmurs rubs or gallops Abdomen: Soft, nontender and nondistended with positive bowel sounds Extremities: No lower extremity edema Skin: Normal color - Assessment and Plan (1) UTI (urinary tract infection) Current Visit: Yes Status: Acute Assessment and Plan: Patient's urine cultures growing Klebsiella pneumonia that is MDRO sensitive to Zosyn Placed on contact precautions Will continue day 3 of IV Zosyn (2) Fracture, humerus Current Visit: No Status: Acute Assessment and Plan: Patient presented from [facility] found to have left fracture with dislocation of proximal humerus with malunion secondary to fall. Patient now postop day 3 total left shoulder replacement. Orthopedics following appreciate recommendations dry dip worker following for placement with [place]- SNF/ECF (3) Forehead laceration Current Visit: Yes Status: Acute Assessment and Plan: Patient status post closure of laceration on left forehead General surgery was consulted and patient status post single layered closures with jess is performed. [place] to be removed in 7-10 days. (4) Dementia Current Visit: Yes Status: Acute Assessment and Plan: Per social worker school's note. Frustrated as [facility] not [facility]'s full condition to them therefore medical history uncertain Patient apparently has dementia and is on medications Patient has been confused since his arrival to [facility] has only been alert and oriented to person Head CT showed no acute findings but patient does have urinary tract infection as above Cont home medication (5) Hypothyroid Current Visit: Yes Status: Acute Assessment and Plan: Continue home dose of levothyroxine (6) Bipolar 1 disorder, depressed Current Visit: Yes Status: Acute Assessment and Plan: cont home medications (7) Fall Current Visit: Yes Status: Acute Assessment and Plan: Fall, unsure if witnessed , unsure if mechanical PT/OT consulted with recommendations for long term facility placement DVT Prophylaxis: Heparin subcutaneous - Time Spent with Patient Total time spent is greater than 50% in coordination of care (as documented) at patient's floor/unit and/or counseling patient: Internal Medicine: Result - Labs CBC & Chem 7: 02/03/19 11:10 02/03/19 11:10 Labs: Short CBC 02/02/19 Range/Units 10:28 Hgb 8.0 L D (12.9-16.9) g/dL Hct 26.2 L (37.5-50.1) % BMP 02/02/19 10:28 Sodium 137 Potassium 4.0 Chloride 106 Carbon Dioxide 30 H BUN 9 Creatinine 0.85 Glucose 131 H Calcium 10.2 - ABG Interpretation ABG results: PT/INR, D-dimer PT 13.3 Seconds (9.4-12.1) H 02/01/19 08:07 Consult Discharge Plan - Plan Additional Instructions: Follow-up with acute care surgery for staple removal in 7-10 days Referrals: Lior Haddad [Partnered Physician] - NONE,PCP [Primary Care Provider] - (2) Fracture, humerus Qualifiers: Encounter type: initial encounter Humerus Location: shaft Fracture type: closed Fracture morphology: comminuted Fracture alignment: displaced Laterality: left Qualified Code(s): S42.352A - Displaced comminuted fracture of shaft of humerus, left arm, initial encounter for closed fracture (3) Forehead laceration Qualifiers: Qualified Code(s): S01.81XD - Laceration without foreign body of other part of head, subsequent encounter (4) Dementia Qualifiers: Dementia type: unspecified type Dementia behavioral disturbance: without behavioral disturbance Qualified Code(s): F03.90 - Unspecified dementia without behavioral disturbance (5) Hypothyroid Qualifiers: Hypothyroidism type: unspecified Qualified Code(s): E03.9 - Hypothyroidism, unspecified (7) Fall Qualifiers: Encounter type: initial encounter Qualified Code(s): W19.XXXA - Unspecified fall, initial encounter
[2019-02-03] MEDS: Finasteride 5 MG TABLET PO SCH (08:18)
[2019-02-03] MEDS: chlorproMAZINE 25 MG TABLET PO SCH (08:18)
[2019-02-03] MEDS: Lithium Carbonate 300 MG CAPSULE PO SCH ×2 (08:18→20:09)
[2019-02-03] MEDS: *HR* LORazepam 1 MG TABLET PO SCH ×2 (08:19→20:09)
[2019-02-03] MEDS: Insulin LISPRO 300 UNITS/3 ML VIAL SQ SCH ×4 (08:39→20:28)
[2019-02-03 12:02] LABS: Basophils % 0.5 %; Eosinophils # 0.2 K/mcL (0.0-0.6); Eosinophils % 2.8 %; Hematocrit 25.4 % (37.5-50.1); Hemoglobin 7.8 g/dL (12.9-16.9); Immature Granulocytes % 0.3 % (0-4); Lymphocytes # 1.4 K/mcL (0.6-4.6); Lymphocytes % 22.7 %; Mean Corpuscular HGB Conc 30.7 g/dL (31.6-35.5); Mean Corpuscular Hemoglobin 26.8 pg (28.0-33.3); Mean Corpuscular Volume 87.3 fL (83.0-100.0); Mean Platelet Volume 11.2 fL (9.4-12.4); Monocytes # 0.6 K/mcL (0.0-1.3); Monocytes % 9.8 %; Platelet Count 178 K/mcL (140-400); Red Blood Count 2.91 M/mcL (4.19-5.50); Red Cell Distribution Width 14.7 % (11.5-14.5); Segmented Neutrophils % 63.9 %
[2019-02-03 12:03] LABS: White Blood Count 6.3 K/mcL (4.3-11.1)
[2019-02-03 12:19] LABS: BUN/Creatinine Ratio 10 (6-26); Blood Urea Nitrogen 6 mg/dL (8-23); Calcium 9.4 mg/dL (8.6-10.3); Carbon Dioxide 27 mEq/L (23-29); Chloride 102 mEq/L (98-107); Glucose 142 mg/dL (70-105); Osmolality,Calculated 276 (280-300); Potassium 3.6 mEq/L (3.5-5.1); Sodium 133 mEq/L (136-145); eGFR For African Americans > 60 (> 60); eGFR For Non-African Americans > 60 (> 60)
--- NOTE | 2019-02-03 15:27 | Orthopedics Progress Note ---
Date of Encounter: 02/03/19 Time of Encounter: 09:00 Subjective Interval history: S: Patient is seen today and has no complaints. O: Afebrile and vital signs are stable Operative extremity dressing is clean, dry, and intact. Neurovascularly intact to left upper extremity A: Post left shoulder arthroplasty P: Resume postoperative care Orthopedically stable Objective Vital signs: Vital Signs Temp Pulse Resp BP Pulse Ox 02/03/19 11:30 97.4 F L 100 18 118/73 96 02/03/19 06:57 98.4 F 90 15 146/76 96 02/03/19 04:25 98.0 F 85 18 136/74 99 02/02/19 23:29 97.9 F 91 18 117/72 98 02/02/19 17:57 97.6 F 97 19 126/73 99 02/02/19 15:54 98.4 F 106 22 119/60 93 Intake and Output 02/02/19 02/03/19 02/03/19 23:59 07:59 15:59 Intake Total 580 / 1920 900 / 1140 240 / 1140 Output Total 1050 / 2200 500 / 500 Balance -470 / -280 400 / 640 240 / 640 Intake: IV Fluids 100 / 300 100 / 100 Zosyn 3.375 GM In 0.9 % Sodium 100 / 300 100 / 100 Chloride (Mini-Bag +) 100 ML @ 25 mls/hr IVPB Q8HR [facility] Rx#: [id number] Oral 480 / 1620 800 / 1040 240 / 1040 Output: Urine 1050 / 2200 500 / 500 Other: Meal Dinner Breakfast Percent of Meal Consumed 85% 50% # Urine Diapers 1 Blood Glucose* 117 136 - Labs CBC & BMP: 02/03/19 11:10 02/03/19 11:10 Labs: Abnormal lab results WBC 16.8 K/mcL (4.3-11.1) H D 02/01/19 08:07 RBC 2.91 M/mcL (4.19-5.50) L 02/03/19 11:10 Hgb 7.8 g/dL (12.9-16.9) L 02/03/19 11:10 Hct 25.4 % (37.5-50.1) L 02/03/19 11:10 MCH 26.8 pg (28.0-33.3) L 02/03/19 11:10 MCHC 30.7 g/dL (31.6-35.5) L 02/03/19 11:10 RDW 14.7 % (11.5-14.5) H 02/03/19 11:10 15.1 K/mcL (1.6-8.9) H 02/01/19 08:07 PT 13.3 Seconds (9.4-12.1) H 02/01/19 08:07 Sodium 133 mEq/L (136-145) L 02/03/19 11:10 Potassium 5.6 mEq/L (3.5-5.1) H 02/01/19 02:57 Carbon Dioxide 30 mEq/L (23-29) H 02/02/19 10:28 BUN 6 mg/dL (8-23) L 02/03/19 11:10 0.59 mg/dL (0.70-1.30) L 02/03/19 11:10 Glucose 142 mg/dL (70-105) H 02/03/19 11:10 POC Glucose 117 mg/dL (70-99) H 02/02/19 20:03 276 (280-300) L 02/03/19 11:10 Calcium 10.4 mg/dL (8.6-10.3) H 01/31/19 01:10 Ur Specific [place] 1.007 (1.010-1.025) L 01/30/19 23:50 Ur Leukocyte Esterase Moderate (Negative) H 01/30/19 23:50 15-30 per hpf (0-3) H 01/30/19 23:50 Ur Squamous Epith Cells Moderate per lpf (None-Few) H 01/30/19 23:50 Ur Culture Indicated? YES (NO) A 01/30/19 23:50 [place] 0.4 mEq/L (0.6-1.2) L 01/30/19 19:21 Consult Discharge Plan - Plan Additional Instructions: Follow-up with acute care surgery for staple removal in 7-10 days Referrals: Lior Haddad [Partnered Physician] - NONE,PCP [Primary Care Provider] -
[2019-02-04] MEDS: Piperacillin/Tazobactam 3.375 GM in 0.9 % Sodium Chloride Mini Bag 100 ML IVPB SCH ×2 (03:10→07:55)
--- NOTE | 2019-02-04 06:27 | Orthopedics Progress Note ---
Date of Encounter: 02/04/19 Time of Encounter: 06:26 Subjective Interval history: Patient was seen this morning Afebrile vital signs stable. Operative extremity: Neurovascularly intact positive ecchymosis Dressing clean dry and intact [place] nontender Assessment and plan: Continue with postoperative care or so stable for discharge Objective Vital signs: Vital Signs Temp Pulse Resp BP Pulse Ox 02/04/19 06:19 99.1 F 94 16 130/74 98 02/04/19 03:13 138/84 02/03/19 23:26 97.7 F 72 18 123/71 94 02/03/19 20:30 94 02/03/19 20:07 98.4 F 78 16 130/72 94 02/03/19 15:53 97.3 F L 90 18 127/79 100 02/03/19 11:30 97.4 F L 100 18 118/73 96 02/03/19 06:57 98.4 F 90 15 146/76 96 Intake and Output 02/03/19 02/03/19 02/04/19 15:59 23:59 07:59 Intake Total 820 / 1820 100 / 1820 480 / 480 Output Total 550 / 550 Balance 820 / 1320 100 / 1320 -70 / -70 Intake: IV Fluids 100 / 300 100 / 300 Zosyn 3.375 GM In 0.9 % Sodium 100 / 300 100 / 300 Chloride (Mini-Bag +) 100 ML @ 25 mls/hr IVPB Q8HR [facility] Rx#: [id number] Oral 720 / 1520 480 / 480 Output: Urine 550 / 550 Other: Meal Lunch Dinner Percent of Meal Consumed 50% 0% # Voids 3 # Urine Diapers 2 1 1 Blood Glucose* 136 125 - Labs CBC & BMP: 02/03/19 11:10 02/03/19 11:10 Labs: Abnormal lab results WBC 16.8 K/mcL (4.3-11.1) H D 02/01/19 08:07 RBC 2.91 M/mcL (4.19-5.50) L 02/03/19 11:10 Hgb 7.8 g/dL (12.9-16.9) L 02/03/19 11:10 Hct 25.4 % (37.5-50.1) L 02/03/19 11:10 MCH 26.8 pg (28.0-33.3) L 02/03/19 11:10 MCHC 30.7 g/dL (31.6-35.5) L 02/03/19 11:10 RDW 14.7 % (11.5-14.5) H 02/03/19 11:10 15.1 K/mcL (1.6-8.9) H 02/01/19 08:07 PT 13.3 Seconds (9.4-12.1) H 02/01/19 08:07 Sodium 133 mEq/L (136-145) L 02/03/19 11:10 Potassium 5.6 mEq/L (3.5-5.1) H 02/01/19 02:57 Carbon Dioxide 30 mEq/L (23-29) H 02/02/19 10:28 BUN 6 mg/dL (8-23) L 02/03/19 11:10 0.59 mg/dL (0.70-1.30) L 02/03/19 11:10 Glucose 142 mg/dL (70-105) H 02/03/19 11:10 POC Glucose 125 mg/dL (70-99) H 02/03/19 20:28 276 (280-300) L 02/03/19 11:10 Calcium 10.4 mg/dL (8.6-10.3) H 01/31/19 01:10 Ur Specific [place] 1.007 (1.010-1.025) L 01/30/19 23:50 Ur Leukocyte Esterase Moderate (Negative) H 01/30/19 23:50 15-30 per hpf (0-3) H 01/30/19 23:50 Ur Squamous Epith Cells Moderate per lpf (None-Few) H 01/30/19 23:50 Ur Culture Indicated? YES (NO) A 01/30/19 23:50 [place] 0.4 mEq/L (0.6-1.2) L 01/30/19 19:21 Consult Discharge Plan - Plan Additional Instructions: Follow-up with acute care surgery for staple removal in 7-10 days Referrals: Lior Haddad [Partnered Physician] - NONE,PCP [Primary Care Provider] -
[2019-02-04 07:02] LABS: Basophils % 0.4 %; Eosinophils # 0.3 K/mcL (0.0-0.6); Eosinophils % 3.7 %; Hematocrit 28.6 % (37.5-50.1); Hemoglobin 8.7 g/dL (12.9-16.9); Immature Granulocytes % 0.3 % (0-4); Lymphocytes # 1.4 K/mcL (0.6-4.6); Lymphocytes % 19.8 %; Mean Corpuscular HGB Conc 30.4 g/dL (31.6-35.5); Mean Corpuscular Hemoglobin 26.8 pg (28.0-33.3); Mean Platelet Volume 10.5 fL (9.4-12.4); Monocytes # 0.7 K/mcL (0.0-1.3); Monocytes % 9.8 %; Neutrophils # 4.5 K/mcL (1.6-8.9); Platelet Count 196 K/mcL (140-400); Red Blood Count 3.25 M/mcL (4.19-5.50); Red Cell Distribution Width 14.9 % (11.5-14.5); White Blood Count 6.8 K/mcL (4.3-11.1)
[2019-02-04] MEDS: *HR* Heparin 5,000 UNIT/ML VIAL SQ SCH ×2 (07:02→14:30)
[2019-02-04 07:21] LABS: BUN/Creatinine Ratio 8 (6-26); Blood Urea Nitrogen 7 mg/dL (8-23); Calcium 9.8 mg/dL (8.6-10.3); Carbon Dioxide 30 mEq/L (23-29); Chloride 107 mEq/L (98-107); Glucose 137 mg/dL (70-105); Osmolality,Calculated 286 (280-300); Potassium 3.9 mEq/L (3.5-5.1); Sodium 138 mEq/L (136-145); eGFR For African Americans > 60 (> 60); eGFR For Non-African Americans > 60 (> 60)
[2019-02-04] MEDS: Insulin LISPRO 300 UNITS/3 ML VIAL SQ SCH ×2 (07:29→11:41)
[2019-02-04] MEDS: chlorproMAZINE 25 MG TABLET PO SCH (07:56)
[2019-02-04] MEDS: Lithium Carbonate 300 MG CAPSULE PO SCH (07:56)
[2019-02-04] MEDS: Finasteride 5 MG TABLET PO SCH (07:56)
[2019-02-04] MEDS: *HR* LORazepam 1 MG TABLET PO SCH (07:56)
[2019-02-04 15:40] VITALS: BP 125/74
--- NOTE | 2019-02-04 15:41 | Physician Discharge Referral ---
ExtendedCare Referral Info Institutional Level of Care: Skilled - Diagnosis (1) UTI (urinary tract infection) Status: Acute (2) Fracture, humerus Status: Acute (3) Forehead laceration Status: Acute (4) Dementia Status: Acute (5) Hypothyroid Status: Acute (6) Bipolar 1 disorder, depressed Status: Acute (7) Fall Status: Acute - Transfer Medications Prescriptions: LORazepam [Ativan] 0.5 mg PO BID 3 Days #6 tablet OXYCODONE Oral CONC [Oxycodone Oral Conc] 5 mg SL Q8H PRN 3 Days #9 oral.syg PRN Reason: Mild To Moderate Pain Home Medications: Acetaminophen [Tylenol] 650 mg PO Q6HR PRN 01/30/19 [History] Atorvastatin Calcium [Lipitor] 20 mg PO DAILY 01/30/19 [History] Cromolyn Sodium 1 drop BOTH EYES BID 01/30/19 [History] DiphenhydraMINE [Benadryl] 25 mg IV Q8HR PRN 01/30/19 [History] Donepezil HCl [Aricept] 5 mg PO DAILY 01/30/19 [History] Duloxetine HCl [Cymbalta] 120 mg PO DAILY 01/30/19 [History] Finasteride [Proscar] 5 mg PO DAILY 01/30/19 [History] Levothyroxine Sodium [Levoxyl] 62.5 mcg PO DAILY 01/30/19 [History] Lidocaine 1 appl TP Q8H PRN 01/30/19 [History] [place] Carbonate 300 mg PO BID 01/30/19 [History] Loperamide HCl [Anti-Diarrheal] 2 mg PO Q2H PRN 01/30/19 [History] Miconazole Nitrate [Zeasorb AF] 1 appl TP BID 01/30/19 [History] Nitrofurantoin Macrocrystal [Nitrofurantoin] 100 mg PO BID 01/30/19 [History] Tamsulosin HCl [Flomax] 0.4 mg PO DAILY 01/30/19 [History] chlorproMAZINE [Thorazine] 25 mg IM Q8H PRN 01/30/19 [History] risperiDONE [Risperidone] 1 mg PO Q4H PRN 01/30/19 [History] LORazepam [Ativan] 0.5 mg PO BID 3 Days #6 tablet 02/04/19 [Rx] OXYCODONE Oral CONC [Oxycodone Oral Conc] 5 mg SL Q8H PRN 3 Days #9 oral.syg 02/04/19 [Rx] Allergies/Adverse Reactions: Allergy/AdvReac Type Severity Reaction Status Date / Time bupropion Allergy See Verified 01/30/19 12:52 Comments haloperidol [From Haldol] Allergy See Verified 01/30/19 12:52 Comments methadone Allergy See Verified 01/30/19 12:52 Comments pravastatin Allergy See Verified 01/30/19 12:52 Comments rosuvastatin [From Crestor] Allergy See Verified 01/30/19 12:52 Comments simvastatin Allergy See Verified 01/30/19 12:52 Comments sulfamethoxazole Allergy See Verified 01/30/19 12:52 [From Bactrim] Comments tramadol Allergy See Verified 01/30/19 12:52 Comments trimethoprim [From Bactrim] Allergy See Verified 01/30/19 12:52 Comments - Respiratory Orders Smoking Cessation: Smoking cessation has been advised. For more information, call the [place] Tobacco Quit Line at 1-881-EEDG-NOW. CERTIFICATION: I certify that the transfer of the above named patient to an Extended Care Facility is necessary for the continuing treatment of the diagnosis listed. The above information is true and accurate reflection of patient's current condition. Confidential - Redisclosure prohibited without a patient's written consent.
--- NOTE | 2019-02-04 15:41 | Discharge Summary ---
Orders not resulted at time of discharge: Pending orders 01/31/19 15:07 US anesthesia pain block [US] Stat 01/31/19 16:47 Culture,Anaerobic [RM] Routine 01/31/19 17:57 Surgical Pathology [PTH] Routine 02/01/19 10:30 Culture,Blood [BC] Routine Date of Encounter: 02/04/19 Time of Encounter: 11:00 - Discharge Diagnosis (1) UTI (urinary tract infection) Priority: Primary Status: Acute Qualifiers: Indwelling urinary catheter type: unspecified Encounter type: sequela Qualified Code(s): T83.511S - Infection and inflammatory reaction due to indwelling urethral catheter, sequela; N39.0 - Urinary tract infection, site not specified (2) Fracture, humerus Priority: Primary Status: Acute Qualifiers: Encounter type: initial encounter Humerus Location: shaft Fracture type: closed Fracture morphology: comminuted Fracture alignment: displaced Laterality: left Qualified Code(s): S42.352A - Displaced comminuted fracture of shaft of humerus, left arm, initial encounter for closed fracture (3) Forehead laceration Priority: Secondary Status: Acute Qualifiers: Qualified Code(s): S01.81XD - Laceration without foreign body of other part of head, subsequent encounter (4) Dementia Priority: Secondary Status: Acute Qualifiers: Dementia type: unspecified type Dementia behavioral disturbance: without behavioral disturbance Qualified Code(s): F03.90 - Unspecified dementia without behavioral disturbance (5) Hypothyroid Priority: Secondary Status: Acute Qualifiers: Hypothyroidism type: unspecified Qualified Code(s): E03.9 - Hypothyroidism, unspecified (6) Bipolar 1 disorder, depressed Priority: Secondary Status: Acute (7) Fall Priority: Secondary Status: Acute Qualifiers: Encounter type: initial encounter Qualified Code(s): W19.XXXA - Unspecified fall, initial encounter Hospital course: Patient is a 63-year-old male with past medical history significant for dementia, hypothyroid, mood disorder who presents from [facility] after fall now with arm pain. She was sent to [facility] where he was found to have humerus fracture on x-ray it was transferred to [facility] for further evaluation and management. During hospital stay orthopedics was consulted Patient now postop day 4 total left shoulder replacement. Patient was also found to have urine cultures growing Klebsiella pneumonia that is MDRO. Patient was treated with IV Zosyn during her hospital stay. Patient will need to complete a seven-day course of Levaquin. Patient is medically stable to be discharged to residential facility. - Time Spent with Patient Total time spent providing and/or coordinating discharge services: Time spent: Less than 30 minutes - Discharge Medications Prescriptions: New OXYCODONE Oral CONC [Oxycodone Oral Conc] 5 mg SL Q8H PRN 3 Days #9 oral.syg PRN Reason: Mild To Moderate Pain Levofloxacin [Levaquin] 500 mg PO DAILY 7 Days #7 tablet Continued Acetaminophen [Tylenol] 650 mg PO Q6HR PRN PRN Reason: Pain chlorproMAZINE [Thorazine] 25 mg IM Q8H PRN PRN Reason: Agitation Lidocaine 1 appl TP Q8H PRN PRN Reason: Moderate Pain [place] Carbonate 300 mg PO BID Miconazole Nitrate [Zeasorb AF] 1 appl TP BID Levothyroxine Sodium [Levoxyl] 62.5 mcg PO DAILY LORazepam [Ativan] 0.5 mg PO BID 3 Days #6 tablet risperiDONE [Risperidone] 1 mg PO Q4H PRN PRN Reason: Agitation Nitrofurantoin Macrocrystal [Nitrofurantoin] 100 mg PO BID Loperamide HCl [Anti-Diarrheal] 2 mg PO Q2H PRN PRN Reason: Diarrhea Finasteride [Proscar] 5 mg PO DAILY Duloxetine HCl [Cymbalta] 120 mg PO DAILY Donepezil HCl [Aricept] 5 mg PO DAILY DiphenhydraMINE [Benadryl] 25 mg IV Q8HR PRN PRN Reason: Agitation Atorvastatin Calcium [Lipitor] 20 mg PO DAILY Tamsulosin HCl [Flomax] 0.4 mg PO DAILY Cromolyn Sodium 1 drop BOTH EYES BID Home Medications: Acetaminophen [Tylenol] 650 mg PO Q6HR PRN 01/30/19 [History] Atorvastatin Calcium [Lipitor] 20 mg PO DAILY 01/30/19 [History] Cromolyn Sodium 1 drop BOTH EYES BID 01/30/19 [History] DiphenhydraMINE [Benadryl] 25 mg IV Q8HR PRN 01/30/19 [History] Donepezil HCl [Aricept] 5 mg PO DAILY 01/30/19 [History] Duloxetine HCl [Cymbalta] 120 mg PO DAILY 01/30/19 [History] Finasteride [Proscar] 5 mg PO DAILY 01/30/19 [History] Levothyroxine Sodium [Levoxyl] 62.5 mcg PO DAILY 01/30/19 [History] Lidocaine 1 appl TP Q8H PRN 01/30/19 [History] [place] Carbonate 300 mg PO BID 01/30/19 [History] Loperamide HCl [Anti-Diarrheal] 2 mg PO Q2H PRN 01/30/19 [History] Miconazole Nitrate [Zeasorb AF] 1 appl TP BID 01/30/19 [History] Nitrofurantoin Macrocrystal [Nitrofurantoin] 100 mg PO BID 01/30/19 [History] Tamsulosin HCl [Flomax] 0.4 mg PO DAILY 01/30/19 [History] chlorproMAZINE [Thorazine] 25 mg IM Q8H PRN 01/30/19 [History] risperiDONE [Risperidone] 1 mg PO Q4H PRN 01/30/19 [History] LORazepam [Ativan] 0.5 mg PO BID 3 Days #6 tablet 02/04/19 [Rx] Levofloxacin [Levaquin] 500 mg PO DAILY 7 Days #7 tablet 02/04/19 [Rx] OXYCODONE Oral CONC [Oxycodone Oral Conc] 5 mg SL Q8H PRN 3 Days #9 oral.syg 02/04/19 [Rx] Allergies/Adverse Reactions: Allergy/AdvReac Type Severity Reaction Status Date / Time bupropion Allergy See Verified 01/30/19 12:52 Comments haloperidol [From Haldol] Allergy See Verified 01/30/19 12:52 Comments methadone Allergy See Verified 01/30/19 12:52 Comments pravastatin Allergy See Verified 01/30/19 12:52 Comments rosuvastatin [From Crestor] Allergy See Verified 01/30/19 12:52 Comments simvastatin Allergy See Verified 01/30/19 12:52 Comments sulfamethoxazole Allergy See Verified 01/30/19 12:52 [From Bactrim] Comments tramadol Allergy See Verified 01/30/19 12:52 Comments trimethoprim [From Bactrim] Allergy See Verified 01/30/19 12:52 Comments Date of admission: 01/30/19 19:48 Primary care physician: PCP NONE Consults: 01/30/19 19:25 Consult to Orthopedic Surgery [CONS] Routine Consulting Provider: Orthopedics [facility] Reason for Consult: humeral fx Time Notified: 19:26 Call Completed: Yes 01/30/19 20:35 Consult to Wound Care [CONS] Routine Reason for Consult: groin wound Call Completed: No 01/31/19 18:58 Consult to Occupational Therapy [CONS] Routine Comment: post shoulder surgery Reason for Consult: post shoulder surgery Does patient have active BEDREST order?: No Is patient medically & hemodynamically stable?: Yes Consult to Physical Therapy [CONS] Routine Comment: post shoulder surgery Reason for Consult: post shoulder surgery Does patient have active BEDREST order?: No Is patient medically & hemodynamically stable?: Yes Consult to Occupational Therapy Department Chair [CONS] Routine Reason for SW Consult: shoulder surgery RT Post Op Consult [CONS] Routine 02/01/19 09:03 Consult to Surgery [CONS] Routine Consulting Provider: Acute Care Surgery Reason for Consult: 3 x 2 X shaped laceration to the left for head. Time Notified: 07:30 Call Completed: Yes - Constitutional Vitals: Temp Pulse Resp BP Pulse Ox 98.3 F 96 18 125/74 96 02/04/19 15:39 02/04/19 15:39 02/04/19 15:39 02/04/19 15:39 02/04/19 15:39 General appearance: Present: A&O X 1 Exam: Gen.: Nonacute distress, alert and oriented 1 Skin: Normal color - Patient Status Disposition: Transfer SNF - Discharge Instructions Follow Up With: Lior Haddad [Partnered Physician] - NONE,PCP [Primary Care Provider] - Additional Instructions: Follow-up with acute care surgery for staple removal in 7-10 days Discharge Instructions: Total Shoulder Please call [facility] ([phone]), your Primary Care Physician, or report to the Emergency Room if you have any of the following symptoms: Nausea, vomiting, fever greater that 101.5, swelling, chest pain, shortness of breath, increased pain/redness/drainage/odor for your incision site, numbness/tingling, or any other concerning symptoms. ACTIVITY: Always keep your arm in the sling. Do not raise your arm away from your body. Do not use your arm to help with getting in or out of bed. No weight bearing permitted. Only perform those exercises given to you by your therapist. Incentive Spirometer 10 times an hour. MEDICATIONS: Upon discharge resume your home medications. Take all the medications as prescribed. Take a stool softener if taking narcotic pain medications. Stool softeners are only effective if you drink enough fluids. Drink 6-8 glass of water or fluids a day, unless this is not allowed for another health problem. Despite using stool softeners, if you haven't had a bowel movement in 3 days, please switch to a gentle laxative. Gentle laxatives are sold over the counter. You should have a bowel movement within 24 hours, if not call the office. You will be discharged from the hospital with a prescription for pain medication. You are encouraged to decrease the use of narcotic pain medication as tolerated. Should you require a refill, please call the office. [facility] prescribes narcotic pain medication for only 4-6 weeks after surgery. If you require pain medication beyond this time period, you may be referred to your Primary Care Physician or to the Pain Clinic for further evaluation. Plan ahead for refills on pain medication as many narcotics either need to be picked up at the office or mailed. It is best to call 48-72 hours in advance of needing a prescription refill so you don't run out of medication. To help control the post-operative pain, you may take NSAIDs (Aleve,Advil, Motrin, Ibuprofen, Naprosyn) or Tylenol as prescribed on the bottle in addition to the pain medication. WOUND CARE: Leave the dressing on for 7-10 days. You may change the dressing if it becomes saturated greater than 50%. Do not get the dressing wet at anytime. Wash your hands with antibacterial soap, rinse and dry prior to any wound care. If you have jess the visiting nurse or rehab facility can remove the stapes 10-14 days after surgery and place steri-strips across the wound. Leave the steri-strips in place until they fall off on their own. You may let water from the shower run on top of the steri-strips. If you do not have a visiting nurse or rehab facility, you will need to return to the office at 10-14 days for the jess to be removed. If you have itching or redness around the dressing call the office. FOLLOW-UP: Please follow up with your surgeon in the orthopedic clinic, as scheduled
--- NOTE | 2019-02-04 17:09 | Event Note ---
Date of Encounter: 02/04/19 Time of Encounter: 08:30 POD#4 s/p Date of procedure: 01/31/19 Pre-op diagnosis: Left fracture dislocation proximal humerus with malunion Post-op diagnosis: same Procedure: Total Shoulder Replacement Reverse,left patient seen at bedside - resting. Denies any concerns or questions. Denies excessive pain at present. Incision c/d/i Continue in sling - no shoulder motion Nonweightbearing to the operative extremity. Outpatient follow up arranged with orthopedics Anticipated discharge today per primary team.
== END 2019-02-04 17:04 | DRG 483 ==
LOC: 3NENU → SUATTDRO 19:48
PROVIDERS: ADMIT Internal Medicine Nephrology; ATTEND Hospitalist